=== PATIENT | male | born 1960 | race Hispanic/Latino ===

== ENCOUNTER 2017-05-27 06:05 | Observation (INO) | payer OTHER, BC ==
--- NOTE | 2017-05-27 07:25 | ER ---
Nurse's Notes [facility] Name: Conner Cabrera Age: 56 yrs Sex: Male : 1960 Arrival Date: 05/27/2017 Time: 06:10 Bed 18 Private MD: Diagnosis: Chronic kidney disease (CKD) Presentation: 05/27 06:22 Presenting complaint: Patient states: "I'm not from this area and I'm a dialysis ao patient and need to be dialyses. I'm here for an emergency family ." Patient states he gets dialysis Saturday, Saturday and Fridays. Transition of care: patient was not received from another setting of care. Onset of symptoms is unknown. Care prior to arrival: None. 06:22 Method Of Arrival: Ambulatory ao 06:22 Acuity: PB 3 ao Triage Assessment: 06:31 General: Appears in no apparent distress. comfortable, Behavior is calm, cooperative, ao appropriate for age. Pain: Denies pain. EENT: No signs and/or symptoms were reported regarding the EENT system. Neuro: Level of Consciousness is awake, alert, obeys commands, Oriented to person, place, time, situation, Appropriate for age Moves all extremities. Speech is normal, Facial symmetry appears normal, Pupils are PERRLA. Cardiovascular: Heart tones S1 S2 Capillary refill < 3 seconds Patient's skin is warm and dry. Respiratory: Airway is patent Respiratory effort is even, unlabored, Respiratory pattern is regular, symmetrical. GI: Abdomen is obese. : No signs and/or symptoms were reported regarding the genitourinary system. Derm: No signs and/or symptoms reported regarding the dermatologic system. Musculoskeletal: No signs and/or symptoms reported regarding the musculoskeletal system. Historical: - Allergies: 06: Vancomycin; ao - Home Meds: :28 Insulin: Regular Sub-Q [Active]; ao - PMHx: :28 Diabetes - IDDM; kidney Failure; ao - PSHx: : BKA; ao - Immunization history:: Adult Immunizations up to date. - Social history:: Smoking status: Patient/guardian denies using tobacco, Patient/guardian denies using alcohol, street drugs. Screenin:30 Abuse screen: Denies threats or abuse. Has been threatened or abused. Nutritional ao screening: No deficits noted. Tuberculosis screening: No symptoms or risk factors identified. Fall Risk None identified. Assessment: 07:10 General: Appears in no apparent distress. comfortable, Behavior is calm, cooperative. em Pain: Denies pain. Neuro: Level of Consciousness is awake, alert, obeys commands, Oriented to person, place, time, situation. Cardiovascular: Capillary refill < 3 seconds Patient's skin is warm and dry. Respiratory: Airway is patent Respiratory effort is even, unlabored, Respiratory pattern is regular, symmetrical. GI: Abdomen is round non-distended. : No signs and/or symptoms were reported regarding the genitourinary system. EENT: No signs and/or symptoms were reported regarding the EENT system. Derm: Skin is intact, Skin is pink, warm \\T\\ dry. Musculoskeletal: Range of motion: intact in all extremities. Vital Signs: 06:25 BP 146 / 67; Pulse 66; Resp 16; Temp 98.2(O); Pulse Ox 99% on R/A; Weight 120.2 kg (R); ao Height 6 ft. 3 in. (190.50 cm) (R); Pain 0/10; 07:39 BP 148 / 66; Pulse 66; Resp 16; Pulse Ox 97% on R/A; mh5 06:25 Body Mass Index 33.12 (120.20 kg, 190.50 cm) ao ED Course: 06:10 Patient arrived in ED. em1 06:15 Brett Whitley PA is PHCP. jr8 06:15 Sae Monson MD is Attending Physician. jr8 06:22 Marvin Alvarado, RN is Primary Nurse. ao 06:24 Triage completed. ao 06:28 Arm band placed on right wrist. Patient placed in an exam room, on a stretcher, on ao pulse oximetry, Patient notified of wait time. 06:33 Patient has correct armband on for positive identification. Pulse ox on. NIBP on. ao 06:58 Report given to RAHEEL Dudley. ao 07:23 Roberto Alas DO is Hospitalizing Provider. jr8 08:01 No provider procedures requiring assistance completed. Patient did not have IV access em during this emergency room visit. Administered Medications: No medications were administered Outcome: 07:24 Decision to Hospitalize by Provider. jr8 08:01 Admitted to Med/surg accompanied by tech, family with patient, via wheelchair, room em 401, with chart, Report called to Brigido Lam RN 08:01 Condition: good 08:01 Instructed on the need for admit, Demonstrated understanding of instructions. 08:04 Patient left the ED. em Signatures: Luis Enrique Ellis, REPORT DEVELOPER REPORT DEVELOPER Saul Sarabia em1 Brett Whitley PA PA jr8 Marvin Alvarado RN RN Josselyn Holt [facility]
--- NOTE | 2017-05-27 07:25 | EDPHYS ---
Physician Documentation [facility] Name: Conner Cabrera Age: 56 yrs Sex: Male : 1960 Arrival Date: 05/27/2017 Time: 06:10 Bed 18 Private MD: ED Physician Sae Monson HPI: 05/27 06:53 This 56 yrs old Male presents to ER via Ambulatory with complaints of needs jr8 dialysis. 06:56 Patient here for dialysis. Stated that he is from [place] and uses [facility]. jrBrit Could not get a hold of them over the weekend to arrange dialysis. Came to [place] for a that was last minute. Was wondering if we could dialyze him . Severity of symptoms: At their worst the symptoms were very mild in the emergency department the symptoms are unchanged. Historical: - Allergies: 06:28 Vancomycin; ao - Home Meds: :28 Insulin: Regular Sub-Q [Active]; ao - PMHx: 06:28 Diabetes - IDDM; kidney Failure; ao - PSHx: 06:28 BKA; ao - Immunization history:: Adult Immunizations up to date. - Social history:: Smoking status: Patient/guardian denies using tobacco, Patient/guardian denies using alcohol, street drugs. ROS: 06:56 Eyes: Negative for injury, pain, redness, and discharge, ENT: Negative for injury, jr8 pain, and discharge, Neck: Negative for injury, pain, and swelling, Cardiovascular: Negative for chest pain, palpitations, and edema, Respiratory: Negative for shortness of breath, cough, wheezing, and pleuritic chest pain, Abdomen/GI: Negative for abdominal pain, nausea, vomiting, diarrhea, and constipation, Back: Negative for injury and pain, MS/Extremity: Negative for injury and deformity, Skin: Negative for injury, rash, and discoloration, Neuro: Negative for headache, weakness, numbness, tingling, and seizure. Exam: 06:56 Eyes: Pupils equal round and reactive to light, extra-ocular motions intact. Lids and jr8 lashes normal. Conjunctiva and sclera are non-icteric and not injected. Cornea within normal limits. Periorbital areas with no swelling, redness, or edema. ENT: Nares patent. No nasal discharge, no septal abnormalities noted. Tympanic membranes are normal and external auditory canals are clear. Oropharynx with no redness, swelling, or masses, exudates, or evidence of obstruction, uvula midline. Mucous membranes moist. Neck: Trachea midline, no thyromegaly or masses palpated, and no cervical lymphadenopathy. Supple, full range of motion without nuchal rigidity, or vertebral point tenderness. No Meningismus. Cardiovascular: Regular rate and rhythm with a normal S1 and S2. No gallops, murmurs, or rubs. Normal PMI, no JVD. No pulse deficits. Respiratory: Lungs have equal breath sounds bilaterally, clear to auscultation and percussion. No rales, rhonchi or wheezes noted. No increased work of breathing, no retractions or nasal flaring. Abdomen/GI: Soft, non-tender, with normal bowel sounds. No distension or tympany. No guarding or rebound. No evidence of tenderness throughout. Back: No spinal tenderness. No costovertebral tenderness. Full range of motion. Skin: Warm, dry with normal turgor. Normal color with no rashes, no lesions, and no evidence of cellulitis. MS/ Extremity: Pulses equal, no cyanosis. Neurovascular intact. Full, normal range of motion. Neuro: Awake and alert, GCS 15, oriented to person, place, time, and situation. Cranial nerves II-XII grossly intact. Motor strength 5/5 in all extremities. Sensory grossly intact. Cerebellar exam normal. Normal gait. Vital Signs: 06:25 BP 146 / 67; Pulse 66; Resp 16; Temp 98.2(O); Pulse Ox 99% on R/A; Weight 120.2 kg (R); ao Height 6 ft. 3 in. (190.50 cm) (R); Pain 0/10; 07:39 BP 148 / 66; Pulse 66; Resp 16; Pulse Ox 97% on R/A; mh5 06:25 Body Mass Index 33.12 (120.20 kg, 190.50 cm) ao MDM: 06:15 Patient medically screened. jr8 07:22 Data reviewed: vital signs, nurses notes, and as a result, I will admit patient. Data jr8 interpreted: Pulse oximetry: on room air is 99 %. Interpretation: normal. Counseling: I had a detailed discussion with the patient and/or guardian regarding: the historical points, exam findings, and any diagnostic results supporting the discharge/admit diagnosis, the need for further work-up and treatment in the hospital. ED course: Consulted Dr. Barnes. Would be able to dialyze patient this morning so he could be discharged this afternoon. Dr. Alas to admit. 05/27 08:03 Order name: CBC with Diff jr8 05/27 08:03 Order name: Basic Metabolic Panel jr 05/27 07:31 Order name: CONS Physician Consult EDID 05/27 07:31 Order name: Regular EDMS Administered Medications: No medications were administered Disposition: 05/28 00:20 Co-signature as Attending Physician, Sae Monson MD I agree with the assessment and tw4 plan of care. Disposition: 05/27/17 07:24 Hospitalization ordered by Roberto Alas for Observation. Preliminary diagnosis is Chronic kidney disease (CKD). - Bed requested for Telemetry/MedSurg (observation). - Status is Observation. em - Condition is Stable. - Problem is new. - Symptoms are unchanged. UTI on Admission? No Signatures: Dispatcher [employer] EDID Myra Szymanski Edgar, MUSICAL INSTRUMENT MAKER MUSICAL INSTRUMENT MAKER em Brett Whitley PA PA jr8 Marvin Alvarado, RN Sae Aguilar MD MD tw4
[2017-05-27] MEDS ORDERED: ACETAMINOPHEN 500 MG TAB PO PRN (07:28)
--- NOTE | 2017-05-27 07:55 | P.HP ---
Certification for Inpatient Patient admitted to: Observation With expected LOS: <2 Midnights Patient will require the following post-hospital care: None Practitioner: I am a practitioner with admitting privileges, knowledge of patient current condition, hospital course, and medical plan of care. Services: Services provided to patient in accordance with Admission requirements found in Title 42 Section 412.3 of the Code of Federal Regulations Patient History Date of Service: 05/27/17 Primary Care Provider: Haseeb Reason for admission: Needs dialysis History of Present Illness: 56 yo HM presented to the ER needing dialysis. He is from [place]. He arrived to the area for a . He was not able to set up routine dialysis with the dialysis center since he was here in the area on short notice. He went to the local dialysis center and he was told to go to the ER for help. He is without any major symptoms including, chest pain, SOB, fever, nausea or vomiting. He is wanting dialysis. He says he needs it now so that he can attend the later this evening. He plans to go back to [place] on Saturday. Home medications list reviewed: No - Past Medical/Surgical History Diabetic: Yes -: DM -: ESRD, M,F,Sat -: Left BKA -: Left finger amputation Psychosocial/ Personal History: - Family History Father -: Diabetes - Social History Smoking Status: Never smoker Alcohol use: No CD- Drugs: No Caffeine use: No Place of Residence: Home Review of Systems General: Unremarkable Eyes: Unremarkable ENT: Unremarkable Respiratory: Unremarkable Cardiovascular: Unremarkable Gastrointestinal: Unremarkable Genitourinary: Unremarkable Integumentary: Unremarkable Neurological: Unremarkable Lymphatics: Unremarkable Physical Examination - Physical Exam General: Alert, In no apparent distress, Oriented x3, Cooperative Neck: Supple, No Thyromegaly Respiratory: Clear to auscultation bilaterally, Normal air movement Cardiovascular: Normal pulses, Regular rate/rhythm Gastrointestinal: Normal bowel sounds, Soft and benign, Non-distended, No ascites, No tenderness, No masses, No rebound, No guarding Integumentary: No tenderness/swelling, No erythema, No warmth, No cyanosis Neurological: Normal speech, Normal strength at 5/5 x4 extr, Normal tone, Normal affect Lymphatics: No axilla or inguinal lymphadenopathy Assessment and Plan - Problems (Diagnosis) (1) ESRD (end stage renal disease) Current Visit: Yes Status: Chronic Plan: Patient needing dialysis since he is from out of town. He normal days of dialysis is M,W,Sat. Nephrology consulted to arrange for dialysis. He may be discharged after dialysis. He will go back to [place] on Saturday. (2) Diabetes mellitus Current Visit: Yes Status: Chronic Plan: Continue with Sliding scale. Qualifiers: Diabetes mellitus type: type 2 Diabetes mellitus medical terminologist insulin use: with mcc use Diabetes mellitus complication status: with kidney complications Diabetes mellitus complication detail: with chronic kidney disease Chronic kidney disease stage: on chronic dialysis Qualified Code(s) : E11.22 - Type 2 diabetes mellitus with diabetic chronic kidney disease; N18.6 - End stage renal disease; N18.6 - End stage renal disease; N18.6 - End stage renal disease; N18.6 - End stage renal disease; Z79.4 - ferry terminal agent (current) use of insulin; Z79.4 - care home (current) use of insulin; Z79.4 - care home ( current) use of insulin; Z79.4 - care home (current) use of insulin; Z99.2 - Dependence on renal dialysis; Z99.2 - Dependence on renal dialysis; Z99.2 - Dependence on renal dialysis; Z99.2 - Dependence on renal dialysis Discharge Plan: Home Plan to discharge in: 24 Hours - Advance Directives Does patient have a Living Will: No Does patient have a Durable POA for Healthcare: No - Code Status/Comfort Care Code Status Assessed: Yes Time Spent Managing Pts Care (In Minutes): 55
[2017-05-27] MEDS ORDERED: IPRATROPIUM BROM 0.5MG/2.5ML NEB PRN (08:30)
[2017-05-27] MEDS ORDERED: ALBUTEROL 2.5 MG/3 ML NEB SOL NEB PRN (08:30)
[2017-05-27] MEDS ORDERED: ONDANSETRON 4 MG/2 ML VIAL IV PRN (08:30)
[2017-05-27 08:37] LABS: Absolute Lymphocytes (CBC) 1.1 K/uL (0.7-4.9); Absolute Monocytes 0.8 K/uL (0.1-1.3); Absolute Neutrophil 4.7 K/uL (1.8-8.0); Eosinophils % 6.8 % (0-4.4); Hematocrit 29.1 % (39.6-49.0); Lymphocytes % 14.9 % (15.3-44.8); MCH 30.8 pg (27.0-35.0); MCV 92.5 fL (80-100); MPV 8.5 fL (7.6-11.3); RBC Red Blood Cell Count 3.15 M/uL (4.33-5.43)
[2017-05-27 08:56] LABS: Albumin 3.3 g/dL (3.2-5.5); Bilirubin Total 1.3 mg/dL (0.3-1.2); Protein, Total 7.3 g/dL (6.0-8.3)
[2017-05-27] MEDS ORDERED: NA CHLORIDE 0.9% 1,000 ML IV PRN (09:06)
[2017-05-27] MEDS ORDERED: MANNITOL 25% 12.5 GM/50 ML VIAL IV PRN (09:06)
[2017-05-27] MEDS ORDERED: EPOETIN ALFA 10,000 UNIT/ML VIAL IV SCH (09:15)
[2017-05-27] MEDS ORDERED: ALBUMIN HUMAN 25% 50 ML IV SCH (10:00)
[2017-05-27] MEDS ORDERED: INSULIN -REGULAR HUMAN 50 UNIT/0.5 ML ML SQ SCH (11:30)
--- NOTE | 2017-05-27 20:50 | P.CNS ---
Date of Consult: 05/27/17 Reason for Consult: ESRD Requesting Physician: Roberto Alas Primary Care Provider: [place] Chief Complaint: Dyspnea/ Edema History of Present Illness: 56 yo HM presented to the ER needing dialysis. He is from [place]. He arrived to the area for a . He was not able to set up routine dialysis with the dialysis center since he was here in the area on short notice. He went to the local dialysis center and he was told to go to the ER for help. He is without any major symptoms including, chest pain, SOB, fever, nausea or vomiting. He is wanting dialysis. He says he needs it now so that he can attend the later this evening. He plans to go back to [place] on Saturday. 06:53 This 56 yrs old Male presents to ER via Ambulatory with complaints of needs jr8 dialysis. 06:56 Patient here for dialysis. Stated that he is from [place] and uses [facility]. [place] Could not get a hold of them over the weekend to arrange dialysis. Came to [place] for a that was last minute. Was wondering if we could dialyze him . Severity of symptoms: At their worst the symptoms were very mild in the emergency department the symptoms are unchanged. Allergies vancomycin Allergy (Unverified 05/27/17 08:08) Unknown Home medications list reviewed: Yes Home Medications: Insulin -Regular Human [Novolin -R*] See Protocol SQ 05/27/17 - Past Medical/Surgical History Diabetic: Yes -: DM -: ESRD, M,F,Sat -: Left BKA -: Left finger amputation Psychosocial/ Personal History: - Family History Father Medical History: Diabetes - Social History Alcohol use: No CD- Drugs: No Caffeine use: No Place of Residence: Home Review of Systems 10-point ROS is otherwise unremarkable General: Weakness, Malaise Respiratory: SOB with Excertion Cardiovascular: Edema Neurological: Weakness Physical Examination Temp Pulse Resp BP Pulse Ox 97.7 F 67 18 174/63 H 96 05/27/17 09:55 05/27/17 09:55 05/27/17 09:55 05/27/17 09:55 05/27/17 08:00 General: In no apparent distress, Oriented x3, Cooperative HEENT: Atraumatic, Mucous membr. moist/pink Neck: Supple, JVD distended Respiratory: Diminished Cardiovascular: Regular rate/rhythm, No rubs, Edema Gastrointestinal: Soft and benign, Non-distended, No guarding Musculoskeletal: No clubbing, No contractures Integumentary: No rashes, No cyanosis Neurological: Normal speech Blood work reviewed in the chart. Hgb 9.7; K 6 Conclusions/Impression: A/ ESRD on HD. HTN with CKD. A/C Diastolic CHF. Anemia in CKD. Hyperkalemia. APOLLO/ Secondary HyperPTH. DM II with CKD. P/ Continue current POC and medications. Arrange for acute HD. Seen and examined at the start of HD. Restart home medications as indicated. Give Epo. Low sodium diet. Counseled regarding CKD and CHF. AM labs. Daily weight. Thank you kindly for the consultation.
[2017-05-29 12:32] LABS: HBsAG Nonreactive (Nonreactive)
== END 2017-05-27 12:58 | disposition home or self-care (01) ==
LOC: ER 06:05 → ERHOLD 07:27 → 4TH 07:58
PROVIDERS: ADMIT Family Medicine; ATTEND Family Medicine
PROC: 5A1D70Z Performance of Urinary Filtration, Intermittent, Less than 6 Hours Per Day (ICD-10-PCS; principal; 2017-05-27)
DX: I13.2 Hypertensive heart and chronic kidney disease with heart failure and with stage 5 chronic kidney disease, or end stage renal disease (principal); E11.22 Type 2 diabetes mellitus with diabetic chronic kidney disease; N18.6 End stage renal disease; Z99.2 Dependence on renal dialysis; I50.33 Acute on chronic diastolic (congestive) heart failure; D63.1 Anemia in chronic kidney disease; Z89.512 Acquired absence of left leg below knee
CPT/HCPCS: 36415; 80053; 85025; 86317; 86704; 86706; 87340; 90935 ×2; 99285; G0378 ×2; Q4081; G0257